=== PATIENT | female | born 1970 | race Two or more races ===

== ENCOUNTER 2023-06-21 20:46 | Emergency (ER) | payer MEDICAID, OTHER ==
[~2023-06-21] VITALS: Ht 152.4 cm; Wt 61.0 kg
[2023-06-21 21:05] VITALS: BP 131/72; PULSE 66; RESP 16; TEMP 98.2; O2SAT 96
[2023-06-21] MEDS ORDERED: HYDR-4902 PO (23:56)
[2023-06-22] MEDS ORDERED: KETOROLAC TROMETH 60MG/2ML VIAL IM ONE
[2023-06-22] MEDS ORDERED: DexAMETHasone SOD PHOS 10MG/1ML VIAL INJ IM ONE
[2023-06-22] MEDS ORDERED: HYDROcodone-ACET 5/325MG TAB PO ONE
== END 2023-06-22 02:00 | disposition home or self-care (01) ==
LOC: ER 20:46
DX: G56.01 Carpal tunnel syndrome, right upper limb (principal); M25.531 Pain in right wrist
CPT/HCPCS: 29125; 96372; 99284; J1100; J1885